=== PATIENT | female | born 1990 | race Caucasian/White ===

== ENCOUNTER 2016-11-19 15:32 | Emergency (ER) | payer OTHER ==
[2016-11-19 15:45] VITALS: BP 121/66
--- NOTE | 2016-11-19 16:23 | UC ---
Throat Pain/Nasal Nick HPI - HPI Summary HPI Summary: Sore throat for 1 day no fever - History of Current Complaint Chief Complaint: UCGeneralIllness Stated Complaint: SORE THROAT Time Seen by Provider: 11/19/16 16:05 Hx Obtained From: Patient Hx Last Menstrual Period: 09/30/16 ?: No Onset/Duration: Sudden Onset, Lasting Days - 1, Still Present Severity: Severe - 10 Pain Intensity: 10 Pain Scale Used: 0-10 Numeric Cough: None - Allergies/Home Medications Allergies/Adverse Reactions: Allergies Allergy/AdvReac Type Severity Reaction Status Date / Time No Known Allergies Allergy Verified 11/19/16 15:45 Home Medications: Home Medications Fluticasone NASAL * [Flonase *] 1 spray BOTH NARES DAILY 11/19/16 [History Confirmed 11/19/16] Norethindrone (Contraceptive) [Deblitane] 1 tab PO DAILY 11/19/16 [History Confirmed 11/19/16] PMH/Surg Hx/FS Hx/Imm Hx Previously Healthy: Yes Endocrine History Of: Denies: Diabetes, Thyroid Disease Cardiovascular History Of: Denies: Cardiac Disorders, Hypertension, Pacemaker/ICD Respiratory History Of: Denies: COPD, Asthma GI/ History Of: Denies: Ulcer, Renal Disease - Surgical History Surgical History: Yes Surgery Procedure, Year, and Place: WISDOM TEETH. LASIK EYE SURGERY FOR CORRECTIVE VISION - Family History Known Family History: Positive: Other - no family hx of brittle bones, ortho injuries. - Social History Occupation: Student Lives: With Family Alcohol Use: Rare Substance Use Type: None Smoking Status (MU): Never Smoked Tobacco Review of Systems Constitutional: Negative Skin: Negative Eyes: Negative ENT: Sore Throat Respiratory: Negative Cardiovascular: Negative Gastrointestinal: Negative Genitourinary: Negative Motor: Negative Neurovascular: Negative Musculoskeletal: Negative Neurological: Negative Psychological: Negative All Other Systems Reviewed And Are Negative: Yes Physical Exam Triage Information Reviewed: Yes Appearance: Well-Appearing, Well-Nourished, Pain Distress Vital Signs: Initial Vital Signs Temp 98.6 F 11/19/16 15:42 Pulse 77 11/19/16 15:42 Resp 16 11/19/16 15:42 BP 121/66 11/19/16 15:42 Pulse Ox 98 11/19/16 15:42 Vital Signs Reviewed: Yes Eye Exam: Normal Eyes: Positive: Conjunctiva Clear ENT Exam: Normal ENT: Positive: Normal ENT inspection, Hearing grossly normal, Pharyngeal erythema, TMs normal, Tonsillar swelling. Negative: Nasal congestion, Nasal drainage, Tonsillar exudate, Trismus, Muffled/hoarse voice Dental Exam: Normal Neck exam: Normal Neck: Positive: Supple, Nontender, No Lymphadenopathy Respiratory Exam: Normal Respiratory: Positive: Chest non-tender, Lungs clear, Normal breath sounds, No respiratory distress, No accessory muscle use Cardiovascular Exam: Normal Cardiovascular: Positive: RRR, No Murmur, Pulses Normal, Brisk Capillary Refill Musculoskeletal Exam: Normal Musculoskeletal: Positive: Strength Intact, ROM Intact, No Edema Neurological Exam: Normal Neurological: Positive: Alert, Muscle Tone Normal Psychological Exam: Normal Skin Exam: Normal Diagnostics - Laboratory Diagnostic Studies Completed/Ordered: rst (-) Throat Pain/Nasal Course/Dx - Course Assessment/Plan: increase fluids, prednisone, re-check should sx worsen or fail to improve in the next 3 days - Differential Dx/Diagnosis Differential Diagnosis/HQI/PQRI: Laryngitis, Peritonsillar Abscess, Pharyngitis , Sinusitis, URI Provider Diagnoses: Viral sore throat Discharge - Discharge Plan Condition: Stable Disposition: HOME Prescriptions: predniSONE TAB* [Deltasone TAB*] 50 mg PO DAILY #3 tab Patient Education Materials: Prednisone (By mouth), Pharyngitis (ED), Viral Syndrome (ED) Referrals: [facility] [place] [facility] REFERRAL [Outside] - 3 Days No Primary Care Phys,NOPCP [Primary Care Provider] -
== END 2016-11-19 16:49 | disposition home or self-care (01) ==
LOC: UCEAST 15:32
DX: J02.8 Acute pharyngitis due to other specified organisms (principal)
CPT/HCPCS: 87651; 99212; G0463